=== PATIENT | female | born 1960 | race Caucasian/White ===

== ENCOUNTER → 2016-08-02 | Outpatient (CLI) | payer OTHER ==
--- NOTE | 2016-08-02 10:50 | MM ---
Reason for exam: follow-up at short interval from prior study. Last mammogram was performed 6 months ago. History: Patient is postmenopausal, has history of breast cancer at age 49, and is nulliparous. Family history of premenopausal breast cancer in mother at age 40. Mastectomy of the right breast, August 15, 2009. Malignant right breast needle localzation of the right breast, July 04, 2009. Malignant US right core biopsy of the right breast, June 27, 2009. Took tamoxifen for 2 years. Physical Findings: Nurse did not find any significant physical abnormalities on exam. MG 3D Diag Mammo W/Cad LT CC and MLO view(s) were taken of the left breast. Prior study comparison: January 20, 2016, left breast MG 3d diag mammo w/cad LT. January 06, 2015, left breast MG diagnostic mammo LT w CAD. The breast tissue is heterogeneously dense. This may lower the sensitivity of mammography. There is no discrete abnormality. Distortion appears diminished. No significant new findings when compared with previous films. These results were verbally communicated with the patient and result sheet given to the patient on 08/02/16. ASSESSMENT: Benign, BI-RAD 2 RECOMMENDATION: Follow-up diagnostic mammogram of the left breast in 6 months. Back on schedule.
== END | disposition home or self-care (01) ==
LOC: RADMAMWWP 10:13
PROVIDERS: ATTEND Family Medicine
DX: R92.8 Other abnormal and inconclusive findings on diagnostic imaging of breast (principal)
CPT/HCPCS: G0206; G0279

== ENCOUNTER → 2017-02-01 | Outpatient (CLI) | payer OTHER ==
--- NOTE | 2017-02-01 14:15 | MM ---
Reason for exam: additional evaluation requested from prior study. Last mammogram was performed 6 months ago. History: Patient is postmenopausal, has history of breast cancer at age 49, and is nulliparous. Family history of premenopausal breast cancer in mother at age 40. Mastectomy of the right breast, August 15, 2009. Malignant right breast needle localzation of the right breast, July 04, 2009. Malignant US right core biopsy of the right breast, June 27, 2009. Took tamoxifen for 2 years. Physical Findings: Nurse did not find any significant physical abnormalities on exam. MG 3D Diag Mammo W/Cad LT CC and MLO view(s) were taken of the left breast. Prior study comparison: August 02, 2016, left breast MG 3d diag mammo w/cad LT. January 20, 2016, left breast MG 3d diag mammo w/cad LT. Asymmetric breast tissue in the left breast. These results were verbally communicated with the patient and result sheet given to the patient on 02/01/17. ASSESSMENT: Incomplete: need additional imaging evaluation, BI-RAD 0 RECOMMENDATION: Ultrasound of the left breast.
--- NOTE | 2017-02-01 14:16 | USB ---
Reason for exam: additional evaluation requested from abnormal screening. History: Patient is postmenopausal, has history of breast cancer at age 49, and is nulliparous. Family history of premenopausal breast cancer in mother at age 40. Mastectomy of the right breast, August 15, 2009. Malignant right breast needle localzation of the right breast, July 04, 2009. Malignant US right core biopsy of the right breast, June 27, 2009. Took tamoxifen for 2 years. US Breast Limited LT Left breast ultrasound demonstrates no cystic or solid lesion seen. These results were verbally communicated with the patient and result sheet given to the patient on 02/01/17. ASSESSMENT: Negative, BI-RAD 1 RECOMMENDATION: Follow-up diagnostic mammogram of the left breast in 6 months.
== END | disposition home or self-care (01) ==
LOC: RADMAMWWP 09:43
PROVIDERS: ATTEND Family Medicine
DX: Z08 Encounter for follow-up examination after completed treatment for malignant neoplasm (principal); Z85.3 Personal history of malignant neoplasm of breast; R92.8 Other abnormal and inconclusive findings on diagnostic imaging of breast
CPT/HCPCS: 76642; G0206; G0279

== ENCOUNTER → 2017-09-05 | Outpatient (CLI) | payer OTHER ==
--- NOTE | 2017-09-08 08:40 | MM ---
Reason for exam: additional evaluation requested from prior study. Last mammogram was performed 7 months ago. History: Patient is postmenopausal, has history of breast cancer at age 49, and is nulliparous. Family history of premenopausal breast cancer in mother at age 40. Mastectomy of the right breast, August 15, 2009. Malignant right breast needle localzation of the right breast, July 04, 2009. Malignant US right core biopsy of the right breast, June 27, 2009. Took tamoxifen for 2 years. Physical Findings: Nurse did not find any significant physical abnormalities on exam. MG 3D Diag Mammo W/Cad LT CC and MLO view(s) were taken of the left breast. Prior study comparison: February 01, 2017, left breast MG 3d diag mammo w/cad LT. August 02, 2016, left breast MG 3d diag mammo w/cad LT. The breast tissue is heterogeneously dense. This may lower the sensitivity of mammography. Stable distortion upper outer quadrant. Asymmetric densities medially on the CC view and centrally, just above the retroareolar plane on the MLO view are stable for 6 months. Short interval follow up recommended. These results were verbally communicated with the patient and result sheet given to the patient on 09/05/17. ASSESSMENT: Probably benign, BI-RAD 3 RECOMMENDATION: Follow-up diagnostic mammogram of the left breast in 6 months.
== END | disposition home or self-care (01) ==
LOC: RADMAMWWP 13:34
PROVIDERS: ATTEND Family Medicine
DX: Z08 Encounter for follow-up examination after completed treatment for malignant neoplasm (principal); Z85.3 Personal history of malignant neoplasm of breast
CPT/HCPCS: 77065; G0279

== ENCOUNTER → 2018-05-12 | Outpatient (CLI) | payer OTHER ==
--- NOTE | 2018-05-12 11:41 | MM ---
Reason for exam: additional evaluation requested from prior study. Last mammogram was performed 8 months ago. History: Patient is postmenopausal, has history of breast cancer at age 49, and is nulliparous. Family history of premenopausal breast cancer in mother at age 40. Mastectomy of the right breast, August 15, 2009. Malignant right breast needle localzation of the right breast, July 04, 2009. Malignant US right core biopsy of the right breast, June 27, 2009. Took tamoxifen for 2 years. Physical Findings: Nurse did not find any significant physical abnormalities on exam. MG 3D Diag Mammo W/Cad LT CC and MLO view(s) were taken of the left breast. Prior study comparison: September 05, 2017, left breast MG 3d diag mammo w/cad LT. February 01, 2017, left breast MG 3d diag mammo w/cad LT. The breast tissue is heterogeneously dense. This may lower the sensitivity of mammography. There is chronic nodularity in the left breast. There is no discrete abnormality. These results were verbally communicated with the patient and result sheet given to the patient on 05/12/18. ASSESSMENT: Benign, BI-RAD 2 RECOMMENDATION: Follow-up diagnostic mammogram of the left breast in 4 months. Back on schedule.
== END ==
LOC: RADMAMWWP 10:56
PROVIDERS: ATTEND Family Medicine
DX: R92.8 Other abnormal and inconclusive findings on diagnostic imaging of breast (principal)
CPT/HCPCS: 77061; 77065

== ENCOUNTER → 2020-01-25 | Outpatient (CLI) | payer OTHER ==
--- NOTE | 2020-01-25 11:43 | MM ---
Reason for exam: additional evaluation requested from prior study. Last mammogram was performed 1 year and 2 months ago. History: Patient is postmenopausal, has history of breast cancer at age 49, and is nulliparous. Family history of premenopausal breast cancer in mother at age 40. Mastectomy of the right breast, August 15, 2009. Malignant right breast needle localzation of the right breast, July 04, 2009. Malignant US right core biopsy of the right breast, June 27, 2009. Took tamoxifen for 2 years. Physical Findings: Nurse did not find any significant physical abnormalities on exam. MG 3D Diag Mammo W/Cad LT CC and MLO view(s) were taken of the left breast. Prior study comparison: December 04, 2018, left breast MG 3d diag mammo w/cad LT. May 12, 2018, left breast MG 3d diag mammo w/cad LT. The breast tissue is heterogeneously dense. This may lower the sensitivity of mammography. Stable benign calcifications. There is no discrete abnormality. No significant new findings when compared with previous films. These results were verbally communicated with the patient and result sheet given to the patient on 01/25/20. ASSESSMENT: Benign, BI-RAD 2 RECOMMENDATION: Follow-up diagnostic mammogram of the left breast in 1 year.
== END | disposition home or self-care (01) ==
LOC: RADMAMWWP 10:56
PROVIDERS: ATTEND Family Medicine
DX: Z09 Encounter for follow-up examination after completed treatment for conditions other than malignant neoplasm (principal); Z85.3 Personal history of malignant neoplasm of breast
CPT/HCPCS: 77061; 77065

== ENCOUNTER → 2021-02-09 | Outpatient (CLI) | payer OTHER ==
--- NOTE | 2021-02-13 11:56 | MM ---
Reason for exam: additional evaluation requested from prior study. Last mammogram was performed 1 year and 1 month ago. History: Patient is postmenopausal, has history of breast cancer at age 49, and is nulliparous. Family history of premenopausal breast cancer in mother at age 40. Mastectomy of the right breast, August 15, 2009. Malignant right breast needle localzation of the right breast, July 04, 2009. Malignant US right core biopsy of the right breast, June 27, 2009. Took tamoxifen for 2 years. Physical Findings: Nurse did not find any significant physical abnormalities on exam. MG 3D Diag Mammo W/Cad LT CC and MLO view(s) were taken of the left breast. Prior study comparison: January 25, 2020, left breast MG 3d diag mammo w/cad LT. December 04, 2018, left breast MG 3d diag mammo w/cad LT. May 12, 2018, left breast MG 3d diag mammo w/cad LT. August 02, 2016, left breast MG 3d diag mammo w/cad LT. The breast tissue is heterogeneously dense. This may lower the sensitivity of mammography. No significant new findings when compared with previous films. These results were verbally communicated with the patient and result sheet given to the patient on 02/09/21. ASSESSMENT: Negative, BI-RAD 1 RECOMMENDATION: Follow-up diagnostic mammogram of the left breast in 1 year.
== END | disposition home or self-care (01) ==
LOC: RADMAMWWP 10:46
PROVIDERS: ATTEND Family Medicine
DX: Z12.31 Encounter for screening mammogram for malignant neoplasm of breast (principal); Z78.0 Asymptomatic menopausal state; Z80.3 Family history of malignant neoplasm of breast
CPT/HCPCS: 77061; 77065

== ENCOUNTER → 2022-04-07 | Outpatient (CLI) | payer OTHER ==
--- NOTE | 2022-04-07 10:20 | MM ---
Reason for Exam: Additional evaluation requested from prior study. Last mammogram was performed 1 year(s) and 2 month(s) ago. Patient History: Menarche at age 13. Patient has no children. Left ovary removed at age 51. Right ovary removed at age 51. Hysterectomy at age 51. Postmenopausal. Breast cancer, right, age 49. Tamoxifen for 2 years from age 49 until age 52. 08/15/2009, Mastectomy on the Right side. 07/04/2009, Malignant Excisional Biopsy on the right side. 06/27/2009, Malignant Core Biopsy on the right side. Mother had breast cancer, age 40. Prior Study Comparison: 08/02/2016 Left Diagnostic Mammogram, [facility]. 02/01/2017 Left Diagnostic Mammogram, [facility]. 09/05/2017 Left Diagnostic Mammogram, [facility]. 05/12/2018 Left Diagnostic Mammogram, [facility]. 12/04/2018 Left Diagnostic Mammogram, [facility]. 01/25/2020 Left Diagnostic Mammogram, [facility]. 02/09/2021 Left Diagnostic Mammogram, [facility]. Tissue Density: Left: The breast tissue is heterogeneously dense. This may lower the sensitivity of mammography. Findings: Analyzed By CAD. No evidence for mass or distortion. Benign calcifications persists. Overall Assessment: Benign, BI-RAD 2 Management: Diagnostic Mammogram of the left breast in 1 year. A clinical breast exam by your physician is recommended on an annual basis and results should be correlated with mammographic findings. This exam should not preclude additional follow-up of suspicious palpable abnormalities. Results were given to the patient verbally at the time of exam. Electronically signed and approved by: Peter Nguyen M.D. Radiologis
== END | disposition home or self-care (01) ==
LOC: RADMAMWWP 09:05
PROVIDERS: ATTEND Family Medicine
DX: R92.8 Other abnormal and inconclusive findings on diagnostic imaging of breast (principal); Z85.3 Personal history of malignant neoplasm of breast
CPT/HCPCS: 77061; 77065

== ENCOUNTER → 2024-04-12 | Outpatient (CLI) | payer OTHER ==
--- NOTE | 2024-04-12 09:58 | MM ---
Reason for Exam: Hx of breast cancer, mastectomy. Last screening mammogram was performed 12 month(s) ago. Patient History: Menarche at age 13. Patient has no children. Left ovary removed at age 51. Right ovary removed at age 51. Hysterectomy at age 51. Postmenopausal. Breast cancer, right, age 49. Tamoxifen for 2 years from age 49 until age 52. 08/15/2009, Mastectomy on the Right side. 07/04/2009, Malignant Excisional Biopsy on the right side. 06/27/2009, Malignant Core Biopsy on the right side. Mother had breast cancer, age 40. Prior Study Comparison: 02/09/2021 Left Diagnostic Mammogram, [facility]. 04/07/2022 Left MG 3D diag mammo w/cad LT, [facility]. 04/11/2023 Left MG 3D diag mammo w/cad LT, [facility]. Tissue Density: Left: There are scattered areas of fibroglandular density. Findings: Analyzed By CAD. Pattern appears stable Focal asymmetries in the medial right breast, stable from comparison No suspicious groups of microcalcifications, spiculated or lobular masses, architectural distortion or other secondary signs of malignancy are mammographically apparent. Overall Assessment: Benign, BI-RAD 2 Management: Diagnostic Mammogram of the left breast in 1 year. A negative mammogram report should not preclude additional follow up of suspicious palpable abnormalities. Patient should continue monthly self breast exam. A clinical breast exam by your physician is recommended on an annual basis and results should be correlated with mammographic findings. Note on Kenisha scores and lifetime risk: 1. A Kenisha score greater than 3% is considered moderate risk. If this is the case, consider specialist referral to assess eligibility for a risk reducing agent. 2. If overall lifetime risk for the development of breast cancer is 20% or higher, the patient may qualify for future screening with alternating mammogram and breast MRI. [facility], , 04/12/2024 9:56 AM. Electronically signed and approved by: Pepe Vila D.O. Radiologis
== END | disposition home or self-care (01) ==
LOC: RADMAMWWP 09:37
PROVIDERS: ATTEND Family Medicine
DX: Z85.3 Personal history of malignant neoplasm of breast
CPT/HCPCS: 77061; 77065

== ENCOUNTER 2024-05-01 10:42 | Day surgery (SDC) | payer OTHER ==
[2024-05-01 11:09] VITALS: TEMP 98.4
[2024-05-01] MEDS: IV FLUID CONTINUATION 1,000 ML IV ONE (11:18)
[2024-05-01] MEDS: LACTATED RINGERS 1,000 ML IV SCH (11:18)
[2024-05-01] MEDS ORDERED: PROPOFOL 10 MG/ML 20 ML VIAL IV ONE (11:25)
--- NOTE | 2024-05-01 11:44 | P.PCN ---
Date of Procedure: 05/01/24 Procedure(s) Performed: BRIEF HISTORY: Patient is a 64-year-old pleasant white female scheduled for an elective colonoscopy as a part of screening for colon cancer. PROCEDURE PERFORMED: Colonoscopy. PREOPERATIVE DIAGNOSIS: Screening for colon cancer. IV sedation per Anesthesia. PROCEDURE: After informed consent was obtained, the patient, was brought into the endoscopy unit. IV sedation was administered by Anesthesia under continuous monitoring. Digital rectal examination was normal. Initially the Olympus CF-160 flexible video colonoscope was then inserted in the rectum, gradually advanced into the cecum without any difficulty. Careful examination was performed as the scope was gradually being withdrawn. Ileocecal valve and the appendiceal orifice were visualized and appeared normal. Prep was excellent. Mucosa of the cecum, ascending colon, transverse colon, descending colon, sigmoid colon, and rectum appeared normal. Retroflexion was performed in the rectum and no lesions were seen. The patient tolerated the procedure well. IMPRESSION: Normal-appearing colon from rectum to cecum with no evidence of colorectal neoplasia. RECOMMENDATIONS: Findings of this examination were discussed with the patient as well as her family. She was advised to have repeat screening colonoscopy in 10 years..
[2024-05-01 12:11] VITALS: BP 127/61; PULSE 84; RESP 16
== END 2024-05-01 12:48 | disposition home or self-care (01) ==
LOC: ORWHC2ENDO 10:42
PROVIDERS: ATTEND Internal Medicine Gastroenterology
DX: Z12.11 Encounter for screening for malignant neoplasm of colon (principal)
CPT/HCPCS: 45378